=== PATIENT | female | born 1990 | race Caucasian/White ===

== ENCOUNTER 2016-06-05 21:15 | Emergency (ER) | payer OTHER ==
[~2016-06-05 21:15] MED LIST: ALBUTEROL0.09 MG/A1 INH; IBU800 MG PO; LIDOCAINE PO; TRAMADOL50 MG PO
[2016-06-05 22:22] LABS: ABSOLUTE BASOPHIL COUNT 0 /CUMM (0.0-0.2); ABSOLUTE EOSINOPHIL COUNT 0.1 /CUMM (0.0-0.7); ABSOLUTE GRANULOCYTE CT 5.1 /CUMM (1.4-6.5); ABSOLUTE LYMPH COUNT 3.2 /CUMM (1.2-3.4); ABSOLUTE MONOCYTE COUNT 0.5 /CUMM (0.10-0.60); BASOPHIL % 0.4 % (0.0-2.0); EOSINOPHIL % 1.3 % (0-5); GRANULOCYTE % 57.2 % (42.2-75.2); HEMATOCRIT 40.2 % (37-47); MEAN CORPUSCULAR HGB CONC 34.4 G/DL (33.0-37.0); MEAN CORPUSCULAR VOLUME 84.2 FL (81.0-99.0); MEAN PLATELET VOLUME 9.3 FL (7.4-10.4); PLATELET COUNT 272 /CUMM (130-400); RBC DISTRIBUTION WIDTH 12.4 % (11.5-14.5); RED BLOOD CELL CT 4.78 /CUMM (4.20-5.40)
--- NOTE | 2016-06-05 22:48 | ED GI/GU/ABDOMINAL COMPLAINT ---
History of Present Illness General Chief Complaint: Abdominal Pain/Flank Pain Stated Complaint: ABD DISCOMFORT Source: patient Exam Limitations: no limitations Vital Signs & Intake/Output Vital Signs & Intake/Output Vital Signs Date Time Temp Pulse Resp B/P Pulse O2 O2 Flow FiO2 Ox Delivery Rate 06/050 96.5 62 18 123/64 98 Room Air 06/056 Room Air 06/057 97.5 88 22 128/87 98 ED Intake and Output 06/06 0000 06/05 1200 Intake Total 1000 Output Total Balance 1000 Intake, IV 1000 Allergies Coded Allergies: Penicillins (Severe, ANAPHYLAXIS 06/05/16) Sulfa (Sulfonamide Antibiotics) (Severe, ANAPHYLAXIS 06/05/16) coconut (THROAT SCRATCHES AND ITCHES 06/05/16) Triage Note: PER PT HX OF BENIGN POSITIONAL VERTIGO, PER PT FEELING "OFF X 1 WEEK", TONIGHT NAGGING PAIN TO BILAT SIDES, CALLED PMD AND HAD TROUBLE GETTING OUT WORDS SL KARTHIKEYANA AND RIMAKY, LMP2.5 WEEKS AGO. Triage Nurses Notes Reviewed? yes ? N Is pt currently ? No HPI: This patient is a 25-year-old female with a past medical history including vertigo presented to the emergency department today for evaluation of multiple. The patient reported that over the last couple of days she has been feeling dizzy. She reported that she has also been feeling, "shaky." The patient reported that she used to take meclizine back in high school for her vertigo, but reported that it makes her feel worse, so she stopped taking it. The patient reported that today during work she started to have pain in both of her sides. She reported that the pain was about a 4 out of 10 and dull. Left for approximately one hour. She reported that on Wednesday she was having sensation of having to urinate, but then nothing would come out. She denied any current urinary burning, pressure, urgency, frequency, or blood in the urine. The patient reported some mild associated nausea. No vomiting and denied any headache, visual changes, fevers, or chills. (HALLE LAMBERT,DAISY) Reconcile Medications Albuterol Sulfate (Proair Hfa) 90 MCG HFA.AER.AD 2 PUF INH PRN ASTHMA ( Reported) Norgestimate-Ethinyl Estradiol (Tri-Previfem Tablet) [id number] 28 TABLET 1 TAB PO DAILY CONTROL (Reported) Ondansetron (Zofran Odt) 4 MG TAB.RAPDIS 1 TAB SL TID PRN NAUSEA (LIZZY DESAI,DIO Foy) Past History Travel History Traveled to [place] past 21 day No Medical History Any Pertinent Medical History? see below for history Neurological: vertigo EENT: NONE Cardiovascular: NONE Respiratory: NONE Gastrointestinal: NONE Hepatic: NONE Renal: NONE Musculoskeletal: NONE Psychiatric: NONE Endocrine: NONE Surgical History Surgical History: non-contributory Psychosocial History What is your primary language Belgian Tobacco Use: Never used Family History Hx Contributory? No (DAISY NERI PA-C) Review of Systems Review of Systems Constitutional: Reports: no symptoms. EENTM: Reports: no symptoms. Respiratory: Reports: no symptoms. Cardiovascular: Reports: no symptoms. GI: Reports: see HPI. Genitourinary: Reports: see HPI. Musculoskeletal: Reports: no symptoms. Skin: Reports: no symptoms. Neurological/Psychological: Reports: see HPI. All Other Systems: Reviewed and Negative (DAISY NERI PA-C) Physical Exam Physical Exam Gastrointestinal: normal bowel sounds, soft, non-tender, no organomegaly, NO REBOUND OR GUARDING. nO PERITONEAL SIGNS. nO MASSES. nONDISTENDED Comments: Well-developed well-nourished person in no acute distress HEENT: Head normocephalic/atraumatic, moist mucous membranes PERRLA bilaterally. EOMI bilaterally with no nystagmus. Nose is atraumatic. Neck: Supple, no lymphadenopathy Back: Normal inspection. No CVA tenderness. No midline tenderness Cardiovascular: Regular rate and rhythm with no murmurs Respiratory: Chest nontender. No respiratory distress. Breath sounds clear to auscultation bilaterally Extremity: Normal and equal pulses Neuro: Alert oriented x3, cranial nerves II through XII grossly intact. No aphasia. No facial droop. No unilateral weakness. 5 out of 5 muscular strength in all extremities Skin: No appreciable rash on exposed skin, skin is warm and dry. Psych: Mood and affect is normal, memory and judgment is normal. Core Measures ACS in differential dx? No Severe Sepsis Present: No Septic Shock Present: No (DAISY NERI PA-C) Progress Differential Diagnosis: appendicitis, biliary colic, bowel obstruction, colon cancer, cholecystitis, diverticulitis, ectopic , endometritis, gastritis, hepatitis, ischemic bowel, inflamm bowel dis, intrauterine , kidney stone, ovarian cyst, ovarian torsion, pancreatitis, PID/cervicitis, PUD/ GERD, threatened AB, UTI/pyelo, VERTIGO, mNIRE'S DISEASE, LABYRINTHITIS, MIGRAINE, INTRACRANIAL HEMORRHAGE, INTRACRANIAL MASS, VIRAL SYNDROME Plan of Care: Orders Procedure Date/time Status URINALYSIS 06/05 2200 Complete LIPASE 06/05 2127 Complete HEPATIC FUNCTION PANEL 06/05 2127 Complete HUMAN BETA HCG SCREEN 06/05 2127 Complete CBC WITHOUT DIFFERENTIAL 06/05 2127 Complete BASIC METABOLIC PANEL 06/05 2127 Complete AMYLASE 06/05 2127 Complete Laboratory Tests 06/05/168: Urinalysis LIGHT H, Urine Color STRAW, Urine Clarity CLEAR, Urine pH 6.5, Ur Specific [place] 1.010, Urine Protein NEG, Urine Ketones NEG, Urine Nitrite NEG, Urine Bilirubin NEG, Urine Urobilinogen 0.2, Ur Leukocyte Esterase TRACE H, Ur Microscopic SEDIMENT EXAMINED, Urine RBC 1-3, Urine WBC 3-5 H, Ur Epithelial Cells MOD H, Urine Mucus FEW, Urine Hemoglobin NEG, Urine Glucose NEG 06/05/16 2244: Anion Gap 7, Estimated GFR > 60, BUN/Creatinine Ratio 15.7, Glucose 82, Calcium 8.3 L, Total Bilirubin 0.3, Direct Bilirubin 0.2, AST 29, ALT 34, Alkaline Phosphatase 47, Total Protein 6.0 L, Albumin 3.5, Amylase 67, Lipase 111, Total Beta HCG NEGATIVE 06/05/163: CBC w Diff NO MAN DIFF REQ, RBC 4.78, MCV 84.2, MCH 29.0, RDW 12.4, MPV 9.3, Gran % 57.2, Lymphocytes % 35.2, Monocytes % 5.9, Eosinophils % 1.3, Basophils % 0.4, Absolute Granulocytes 5.1, Absolute Lymphocytes 3.2, Absolute Monocytes 0.5 , Absolute Eosinophils 0.1, Absolute Basophils 0, PUBS MCHC 34.4 Initial ED EKG: none Comments: 06/05/2016 11:51:41 PM: Patient reported that she is no longer feeling dizzy. Awaiting urinalysis. (HALLE LAMBERT,DAISY) Departure Departure Disposition: HOME OR SELF CARE Condition: Stable Clinical Impression Primary Impression: Dizziness Referrals: DANNI BERRIOS MD (PCP/Family) Additional Instructions: TAKE ZOFRAN PRESCRIBED FOR NAUSEA. FOLLOW-UP WITH YOUR PRIMARY CARE PHYSICIAN. RETURN FOR ANY WORSENING SYMPTOMS OR CONCERNS. Departure Forms: Customer Survey General Discharge Information Prescriptions: Current Visit Scripts Ondansetron (Zofran Odt) 1 TAB SL TID PRN NAUSEA #10 TAB (DAISY NERI PA-C) PA/DIRECTOR OF AGRONOMY Co-Sign Statement Statement: ED Attending supervision documentation- [] I saw and evaluated the patient. I have also reviewed all the pertinent lab results and diagnostic results. I agree with the findings and the plan of care as documented in the PA's/DIRECTOR OF AGRONOMY's documentation. [x] I have reviewed the ED Record and agree with the PA's/DIRECTOR OF AGRONOMY's documentation. [] Additions or exceptions (if any) to the PAs/DIRECTOR OF AGRONOMY's note and plan are summarized below: [] (LIZZY DESAI,DIO Foy)
[2016-06-05 23:20] VITALS: BP 123/64
[2016-06-05] MEDS ORDERED: TRI-PREVIFEM T1 EACH PO (23:25)
[2016-06-05] MEDS ORDERED: PROAIR HFA8.5 GM INH (23:31)
[2016-06-06] MEDS ORDERED: ZOFRAN ODT4 M1 SL (00:34)
== END 2016-06-06 00:58 ==
LOC: ERH 21:15
PROVIDERS: Pediatrics
DX: R42 Dizziness and giddiness (principal)
CPT/HCPCS: 81001; 96361; 96374; 96375; J1885; J2405